=== PATIENT | female | born 1995 | race African-American/Black ===

== ENCOUNTER → 2021-02-01 | Outpatient (CLI) | payer OTHER ==
--- NOTE | 2021-02-01 08:48 | PFTRPT ---
Height: 62.00 Inches Weight: 103.00 Lbs BSA: 1.44 Diagnosis: ASTHMA DATE: 02/01/2021 ORDERING PHYSICIAN: Ulisses Ramachandran DO Pre and post bronchodilator studies have excellent technical quality. Forced vital capacity is normal. FEV1 is out of proportion. Obstructive index is therefore reduced. Expiratory limit of the flow-volume loop does suggest some degree of flow rate limitation. Favorable bronchodilator response is identified. Total lung capacity is normal. Residual volume is borderline in proportion. Diffusing capacity is normal. No hemoglobin available for correction. Airway resistance and conductance are normal. IMPRESSION: Mild reversible obstructive ventilatory defect. Please correlate clinically. MTDD
== END ==
LOC: M CARPUL 01-23 07:38
PROVIDERS: ATTEND Family Medicine
DX: J45.909 Unspecified asthma, uncomplicated (principal)